=== PATIENT | female | born 1945 | race Caucasian/White ===

== ENCOUNTER 2018-10-21 06:29 | Emergency (ER) | payer OTHER ==
[~2018-10-21 06:29] MED LIST: Sodium Chloride 0.9% 1,000 ML BAG ONE
[2018-10-21 07:20] LABS: Bilirubin Negative (Negative); Blood, Urine Moderate (Negative); Clarity Clear (Clear); Glucose, Urine (Dipstick) Negative (Negative); Leukocyte Trace (Negative); Nitrite Negative (Negative); Protein, Urine (Dipstick) 30 mg/dL (Neg-Trace); Urobilinogen 0.2 mg/dL (Less than 2)
[2018-10-21 07:27] LABS: Bacteria/HPF 1+ HPF (None Seen); RBC/HPF 0-3 HPF (0-3); Squamous Epithelial 0-3 HPF (0-3)
[2018-10-21] MEDS ORDERED: Morphine 4 MG/ML VIAL ONE (07:29)
[2018-10-21] MEDS ORDERED: Ondansetron PF 4 MG/2 ML Vial ONE (07:29)
[2018-10-21 07:55] LABS: #Basophils 0.1 thou/uL (0.0-0.2); #Eosinphils 0.1 thou/uL (0.0-0.7); #Lymphocytes 0.8 thou/uL (1.20-3.40); #Monocytes 0.4 thou/uL (0.11-0.59); #Neutrophils 9.1 thou/uL (1.40-6.50); %Basophils 0.8 % (0.0-1.0); %Eosinophils 0.6 % (0.0-10.0); %Lymphocytes 7.7 % (21.0-51.0); Hemoglobin 12.2 g/dL (12.0-16.0); Mean Corpuscular HGB CONC 32.8 g/dL (32.0-36.0); Mean Corpuscular Hemoglobin 28.9 pg (27.0-31.0); Mean Corpuscular Volume 88.1 fL (78.0-98.0); Mean Platelet Volume 8.1 fL (7.4-10.4); Platelet Count 180 thou/uL (130-400); RBC Distribution Width 13.2 % (11.5-14.5); Red Blood Cell (RBC) Count 4.21 mill/uL (4.20-5.40); White Blood Cell (WBC) Count 10.4 thou/uL (4.8-10.8)
[2018-10-21 08:11] LABS: ALT (SGPT) 12 U/L (8-55); AST (SGOT) 15 U/L (5-34); Albumin 4.2 g/dL (3.4-4.8); Alkaline Phosphatase 102 U/L (40-150); Anion Gap 14 mmol/L (10-20); BUN (Urea Nitrogen) 32 mg/dL (9.8-20.1); Bilirubin, Total 0.2 mg/dL (0.2-1.2); Calc. Creatinine Clearance 0 mL/min (70-130); Calcium 9.7 mg/dL (7.8-10.44); Carbon Dioxide 23 mmol/L (23-31); Chloride 106 mmol/L (98-107); Estimated GFR-MDRD 36; Globulin 3.3 g/dL (2.4-3.5); Glucose 149 mg/dL (83-110); Lipase 20 U/L (8-78); Potassium 4.2 mmol/L (3.5-5.1); Protein, Total 7.5 g/dL (6.0-8.3); Sodium 139 mmol/L (136-145)
--- NOTE | 2018-10-21 08:12 | CT ---
CT Abdomen Pelvis WO Con History: Left flank pain Comparison: None. Findings: There are centrilobular opacities right lower lobe. No pericardial effusion. High-grade left hydroureteronephrosis with perinephric stranding with 2 separate stones in the distal left ureter. The first is a triangular-shaped 3 x 2 x 4 mm calculus 1 cm from the ureterovesicular junction and the second is a 2 x 3 mm calculus at the ureterovesicular junction. No right-sided hydro ureteronephrosis. Mild arcuate vessel calcifications. Calcified granulomas of the spleen. Noncontrast evaluation of liver, pancreas and adrenal glands are unremarkable. No dilated loops of large or small bowel. Circumferential disc osteophyte complex at L2/L3 causes bilateral neural foraminal narrowing and some effacement of the ventral CSF space. Nonunion left posterior rib fractures. There is also nonunion left L3 transverse process fracture. Impression: High-grade left hydroureteronephrosis and perinephric stranding due to 2 separate partially obstructi ng calculi at the distal left ureter measuring up to 4 mm.
[2018-10-21] MEDS ORDERED: Sodium Chloride 0.9% 100 ML ONE (09:02)
[2018-10-21] MEDS ORDERED: cefTRIAXone\\ROCEPHIN 1 GM VIAL ONE (09:02)
== END 2018-10-21 09:30 | disposition short-term general hospital (02) ==
LOC: MADERS 06:29
DX: N13.2 Hydronephrosis with renal and ureteral calculous obstruction (principal); E78.5 Hyperlipidemia, unspecified; E78.00 Pure hypercholesterolemia, unspecified; I10 Essential (primary) hypertension; J44.9 Chronic obstructive pulmonary disease, unspecified; F32.9 Major depressive disorder, single episode, unspecified; Z79.899 Other long term (current) drug therapy
CPT/HCPCS: 74176; 80053; 81003; 81015; 83605; 83690; 85025; 87077; 87086; 87186; 93005; 96361; 96365; 96375; J0696; J2270; J2405; J3490; J7050